=== PATIENT | female | born 1950 | race Caucasian/White ===

== ENCOUNTER 2017-02-03 00:57 | Emergency (ER) | payer MEDICARE, MEDICAID ==
[~2017-02-03] VITALS: Ht 162.6 cm; Wt 43.1 kg
[~2017-02-03 00:57] MED LIST: BENICAR40 MG PO; BUPROPION XL150 MG PO; CLONAZEPAM0.5 M1 PO; GABAPENTIN100 MG PO; NITROSTAT0.4 MG SL; proair
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
[2017-02-03] MEDS ORDERED: Ipratropium 0.02% Inh Soln 2.5ml UD HHN ONE (01:15)
[2017-02-03] MEDS ORDERED: Albuterol ud Inhalation HHN ONE (01:15)
[2017-02-03] MEDS ORDERED: Solu-MEDROL 125mg Inj IVP ONE (01:15)
[2017-02-03] MEDS ORDERED: LORazepam Inj 2mg/ml 1ml IV ONE (01:15)
[2017-02-03 01:41] LABS: BASOPHILS % (AUTO) 0.8 % (0.0-2.0); EOSINOPHILS % (AUTO) 2.1 % (0.0-3.0); LYMPHOCYTES % (AUTO) 19.6 % (20.0-45.0); MEAN CORPUSCULAR HEMOGLOBIN 31.4 PG (27.0-31.0); MEAN CORPUSCULAR HGB CONC 33.8 G/DL (32.0-36.0); MEAN CORPUSCULAR VOLUME 93 FL (80-99); MEAN PLATELET VOLUME 7.5 FL (6.5-10.1); MONOCYTES % (AUTO) 6.7 % (1.0-10.0); NEUTROPHILS % (AUTO) 70.8 % (45.0-75.0); PLATELET COUNT 245 K/UL (150-450); RED BLOOD COUNT 4.86 M/UL (4.20-5.40); RED CELL DISTRIBUTION WIDTH 12.5 % (11.6-14.8); WHITE BLOOD COUNT 9.1 K/UL (4.8-10.8)
[2017-02-03 01:42] LABS: KETONES,URINE NEGATIVE (NEGATIVE); LEUKOCYTE ESTERASE ,URINE 3+ (NEGATIVE); NITRITE,URINE POSITIVE (NEGATIVE); PH,URINE 6 (4.5-8.0); PROTEIN,URINE 2+ (NEGATIVE); UROBILINOGEN,URINE 4 MG/DL (0.0-1.0)
[2017-02-03 02:01] LABS: APPEARANCE,URINE SLIGHTLY CLOUDY
[2017-02-03 02:02] LABS: BACTERIA,URINE MANY /HPF; SQUAMOUS EPITHELIAL CELL,UR MANY /LPF (NONE/OCC); WBC,URINE TNTC /HPF (0 - 2)
[2017-02-03 02:04] LABS: ALANINE AMINOTRANSFERASE 15 U/L (3-33); ALBUMIN/GLOBULIN RATIO 1.5 (1.0-2.7); ALCOHOL < 10 mg/dL; ANION GAP 14 (5-15); ASPARTATE AMINO TRANSFERASE 18 U/L (5-40); CALCIUM 8.9 mg/dL (8.6-10.2); CARBON DIOXIDE 27 mEQ/L (20-30); CHLORIDE 101 mEQ/L (98-107); CREATININE 0.8 mg/dL (0.5-0.9); GLOMERULAR FILTRATION RATE > 60 mL/min (>60); HEMOLYSIS 17; POTASSIUM 3.6 mEQ/L (3.4-4.9); SODIUM 142 mEQ/L (135-145); TOTAL PROTEIN 6.4 g/dL (6.6-8.7)
[2017-02-03] MEDS ORDERED: Tubing IV Cassette IV ONE (02:09)
[2017-02-03] MEDS ORDERED: NS 55 ML IV ONE (02:09)
[2017-02-03 02:14] LABS: CKMB 5.7 ng/mL (< 3.8)
[2017-02-03] MEDS ORDERED: cefTRIAXone 1 GM in NS 55 ML IVPB ONE (02:15)
[2017-02-03 02:43] LABS: TROPONIN I < 0.30 ng/mL (<=0.30)
[2017-02-03 03:24] VITALS: BP 104/60
[2017-02-03] MEDS ORDERED: KEFLEX500 MG ORAL (04:21)
[2017-02-03] MEDS ORDERED: PREDNISONE20 MG ORAL (04:21)
[2017-02-03] MEDS ORDERED: ALBUTEROL SULF8.5 GM INH (04:21)
[2017-02-03 05:05] VITALS: BP 118/64
[2017-02-03 06:22] VITALS: BP 118/64
--- NOTE | 2017-02-03 10:22 | Diagnostic Imaging Report ---
Indication: Shortness of breath Technique: XRAY CHEST 1 V Comparison: 08/05/15 Findings: Cardiomediastinal silhouette is stable. Sternotomy wires and a left chest pacemaker are present. There is no consolidation or pleural effusion. Atherosclerotic changes are noted. The osseous structures are stable. Impression: No acute cardiopulmonary disease.
--- NOTE | 2017-02-04 18:48 | Cardiology Report ---
APPROVED REPORT EKG Measurement Heart [id number] Sinus rhythm with premature atrial complexes Nonspecific ST and T wave abnormality Abnormal ECG
== END 2017-02-03 06:27 | disposition home or self-care (01) ==
LOC: EDBD 00:57 → EMR 01:15
DX: J44.1 Chronic obstructive pulmonary disease with (acute) exacerbation (principal); J45.909 Unspecified asthma, uncomplicated; F14.10 Cocaine abuse, uncomplicated; F23 Brief psychotic disorder; N30.00 Acute cystitis without hematuria; R80.9 Proteinuria, unspecified; F17.200 Nicotine dependence, unspecified, uncomplicated; I10 Essential (primary) hypertension; Z95.0 Presence of cardiac pacemaker; Z85.9 Personal history of malignant neoplasm, unspecified; Z86.59 Personal history of other mental and behavioral disorders; Z88.6 Allergy status to analgesic agent; Z91.048 Other nonmedicinal substance allergy status
CPT/HCPCS: 36415; 71010; 80053; 80300; 81003; 82550; 82553; 83880; 84484; 85025; 87086; 87181; 93005; 94640; 94664; 96360; 96374; 96375; 99284; G0480; J0696; J2930; 80329

== ENCOUNTER 2019-04-02 14:59 | Emergency (ER) | payer MEDICARE, MEDICAID ==
[~2019-04-02] VITALS: Ht 152.4 cm; Wt 41.3 kg
[~2019-04-02 14:59] MED LIST changes: +ALBUTEROL SULF8.5 GM INH; +KEFLEX500 MG ORAL; +PREDNISONE20 MG ORAL
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
[2019-04-02] MEDS ORDERED: UNOBMED (15:07)
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
[2019-04-02 15:13] VITALS: BP 152/74
[2019-04-02] MEDS ORDERED: Neosporin Oint Ud Pkt TOP ONE (15:15)
[2019-04-02] MEDS ORDERED: Acetaminophen 500mg (ES) tab PO ONE (15:15)
[2019-04-02] MEDS ORDERED: Mylanta II UD 30ml ORAL ONE (15:45)
[2019-04-02] MEDS ORDERED: Albuterol ud Inhalation HHN ONE (15:45)
[2019-04-02] MEDS ORDERED: Albuterol/Ipratropium 3ml neb HHN ONE (15:45)
--- NOTE | 2019-04-02 16:09 | NUR ---
ED Nurse Note: [employer] officer [place] #[id number] at bedside.
--- NOTE | 2019-04-02 16:20 | Diagnostic Imaging Report ---
Indication: left hand pain. Comparison: None Findings: 3 views of the left hand were obtained. No acute fractures identified. Bones are osteopenic. There is moderate to severe arthrosis involving several of the joints characterized by joint space narrowing, osteophyte formation particularly at the base of the thumb and interphalangeal joint of the thumb. IMPRESSION: No acute injury identified. Moderate to severe arthrosis
[2019-04-02] MEDS ORDERED: ACETAMINOPHEN-1 EAC1 ORAL (17:52)
[2019-04-02] MEDS ORDERED: TYLENOL325 MG ORAL (17:52)
[2019-04-02] MEDS ORDERED: BACITRACIN15 GM TOPIC (17:52)
[2019-04-02 18:08] VITALS: BP 147/79
[2019-04-02 18:10] VITALS: BP 147/79
--- NOTE | 2019-04-02 18:10 | NUR ---
ER DISCHARGE NOTE: Patient is cleared to be discharged per ERMD, pt is aox4, on room air, with stable vital signs. pt was given dc and prescription instructions, pt was able to verbalize understanding, pt id band removed. pt is able to ambulate with steady gait. pt took all belongings.
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
== END 2019-04-02 18:10 | disposition home or self-care (01) ==
LOC: EDBD 14:59 → EMR 15:15
DX: S63.622A Sprain of interphalangeal joint of left thumb, initial encounter (principal); S76.011A Strain of muscle, fascia and tendon of right hip, initial encounter; S50.811A Abrasion of right forearm, initial encounter; J43.9 Emphysema, unspecified; J44.9 Chronic obstructive pulmonary disease, unspecified; Z88.6 Allergy status to analgesic agent; F17.200 Nicotine dependence, unspecified, uncomplicated; Z95.0 Presence of cardiac pacemaker; F31.9 Bipolar disorder, unspecified; I25.10 Atherosclerotic heart disease of native coronary artery without angina pectoris; Y04.2XXA Assault by strike against or bumped into by another person, initial encounter; Z91.041 Radiographic dye allergy status; M19.042 Primary osteoarthritis, left hand; M85.842 Other specified disorders of bone density and structure, left hand
CPT/HCPCS: 29130; 72170; 94640; 94664; 99284; J7620